=== PATIENT | female | born 1970 | race Two or more races ===

== ENCOUNTER 2021-01-04 18:12 | Emergency (ER) | payer SELFPAY ==
[~2021-01-04] VITALS: Ht 170.2 cm; Wt 108.9 kg
[2021-01-04 18:18] VITALS: BP 135/90
== END 2021-01-04 19:39 | disposition home or self-care (01) ==
LOC: ER 18:16
DX: L05.91 Pilonidal cyst without abscess (principal); F17.210 Nicotine dependence, cigarettes, uncomplicated; Z90.710 Acquired absence of both cervix and uterus